=== PATIENT | male | born 1990 | race Two or more races ===

== ENCOUNTER 2022-08-24 14:17 | Emergency (ER) | payer BC, MEDICAID ==
[~2022-08-24] VITALS: Ht 167.6 cm; Wt 57.5 kg
[2022-08-24 14:59] VITALS: BP 123/71
[2022-08-24] MEDS ORDERED: cefTRIAXone SOD 1,000 MG VL IM ONE (15:45)
== END 2022-08-24 16:09 | disposition home or self-care (01) ==
LOC: ER 14:17
DX: Z00.00 Encounter for general adult medical examination without abnormal findings (principal); Z79.2 Long term (current) use of antibiotics
CPT/HCPCS: 96372; 99283; J0696

== ENCOUNTER 2022-12-01 01:10 | Emergency (ER) | payer MEDICAID ==
[~2022-12-01] VITALS: Ht 165.1 cm; Wt 56.8 kg
[2022-12-01 01:30] VITALS: BP 134/72; PULSE 78; RESP 17; O2SAT 94
[2022-12-01 03:37] LABS: Urine Bacteria NONE SEEN /hpf (None Seen); Urine Blood Negative /uL (Negative); Urine Clarity Clear (Clear); Urine Color Colorless (Yellow); Urine Protein, UAD Negative (Negative); Urine Specific Gravity 1.006 (1.001-1.035); Urine Urobilinogen Normal (Negative); Urine WBC 1 /hpf (0 - 3)
== END 2022-12-01 05:30 | disposition left against medical advice (07) ==
LOC: ER 01:13
DX: R30.9 Painful micturition, unspecified (principal); Z53.21 Procedure and treatment not carried out due to patient leaving prior to being seen by health care provider
CPT/HCPCS: 81001

== ENCOUNTER 2023-01-16 11:31 | Emergency (ER) | payer MEDICAID ==
[~2023-01-16] VITALS: Ht 172.7 cm; Wt 68.0 kg
[2023-01-16] MEDS ORDERED: SODIUM CHLORIDE 0.9% 1,000 ML IVB ONE (12:00)
[2023-01-16] MEDS ORDERED: ONDANSETRON HCL 4 MG/2 ML VIAL IV ONE (12:00)
[2023-01-16] MEDS ORDERED: FAMOTIDINE (10MG/ML) 2ML VL IV ONE (12:00)
[2023-01-16] MEDS ORDERED: ACTIVATED CHARCOAL 50 GM/240 ML SOL NG ONE (12:00)
[2023-01-16 13:53] LABS: Basophils # (auto) 0 10 ^3/uL (0-0.2); Eosinophils # (auto) 0 10 ^3/uL (0-0.8); Lymphocytes # (auto) 1.1 10 ^3/uL (0.4-5.4); Monocytes # (auto) 0.5 10 ^3/uL (0-1.3)
[2023-01-16 13:55] LABS: Basophils % (auto) 0.1 % (0.0-2.0); Eosinophils % (auto) 0.1 % (0.0-7.0); Hematocrit 35.8 % (41.0-53.0); Lymphocytes % (auto) 8.5 % (10.0-50.0); Mean Corpuscular Hemoglobin 35.9 pg (28.0-32.0); Mean Corpuscular Hgb Conc. 33.5 g/dL (32.0-36.0); Monocytes % (auto) 3.8 % (0.0-12.0); Neutrophils # (auto) 11.2 10 ^3/uL (1.6-8.6); Neutrophils % (auto) 87.5 % (37.0-80.0); Red Blood Cells 3.35 10^6/uL (4.5-5.90); Red Cell Distribution Width 13.8 % (11.8-14.3); White Blood Cell 12.8 10^3/uL (4.4-10.8)
[2023-01-16 14:14] LABS: Acetaminophen < 2.0 UG/ML (10.0-20.0); Alanine Aminotransferase 20 U/L (7-40); Albumin 4.7 g/dL (3.2-4.8); Alkaline Phosphatase 100 U/L (46-116); Anion Gap 7 (5-15); Aspartate Aminotransferase 21 U/L (13-40); BUN/Creatinine Ratio 18.9 (10.0-20.0); Bilirubin, Total 1.4 mg/dL (0.2-1.0); Blood Alcohol 4.2 mg/dL (<10); Blood Urea Nitrogen 14 mg/dL (9-23); Calcium 9.1 mg/dL (8.7-10.4); Carbon Dioxide 24 mmol/L (20-30); Chloride 108 mmol/L (98-107); Glucose 68 mg/dL (74-106); Magnesium 1.8 mg/dL (1.6-2.6); Potassium 4.1 mmol/L (3.5-5.1); Sodium 139 mmol/L (136-145); Total Protein 6.8 g/dL (5.7-8.2)
[2023-01-16 14:21] LABS: Salicylate < 3.0 mg/dL (2.8-20.0)
[2023-01-16 19:35] VITALS: PULSE 73; RESP 18; O2SAT 94
[2023-01-16 19:38] VITALS: PULSE 80; RESP 20; O2SAT 97
[2023-01-16] MEDS ORDERED: CYCLOBENZAPRINE HCL 10 MG TAB PO ONE (21:15)
[2023-01-16] MEDS ORDERED: guaiFENesin 200 MG/10 ML UD PO ONE (21:15)
[2023-01-16 22:11] LABS: Amphetamine Screen, Urine Neg (NEGATIVE)
[2023-01-16 22:12] LABS: Barbiturate Scree,Urine Neg (NEGATIVE); Benzodiazephine Screen, Urine Neg (NEGATIVE); Cannabinoid Screen, Urine Pos (NEGATIVE); Cocaine Screen, Urine Neg (NEGATIVE); Opiate Scree,Urine Neg (NEGATIVE); Phencyclidine Screen, Urine Neg (NEGATIVE)
[2023-01-16 22:14] LABS: Urine Bacteria NONE SEEN /hpf (None Seen); Urine Blood Negative /uL (Negative); Urine Clarity Clear (Clear); Urine Color Yellow (Yellow); Urine Mucus FEW (None Seen); Urine Protein, UAD Negative (Negative); Urine Specific Gravity 1.024 (1.001-1.035); Urine Urobilinogen Normal (Negative); Urine WBC 1 /hpf (0 - 3)
[2023-01-16] MEDS ORDERED: LORazepam 2MG/ML-1ML VIAL IV ONE (23:00)
[2023-01-17] MEDS ORDERED: LORazepam 2MG/ML-1ML VIAL IV ONE (02:30)
[2023-01-17] MEDS ORDERED: ACETAMINOPHEN 500 MG TAB PO ONE (02:45)
[2023-01-17 10:21] VITALS: PULSE 81; RESP 17; O2SAT 95
[2023-01-17] MEDS ORDERED: diphenhdrAMINE HCL 25 MG CAP PO ONE (13:45)
[2023-01-17] MEDS ORDERED: LORazepam 2MG/ML-1ML VIAL IM ONE (18:00)
[2023-01-17 19:45] VITALS: PULSE 83; RESP 18; O2SAT 96
[2023-01-17 22:07] VITALS: BP 126/83; PULSE 83; RESP 18; TEMP 98; O2SAT 96
== END 2023-01-17 22:38 | disposition short-term general hospital (02) ==
LOC: EDUNIT# 11:31 → ER 11:31 → EDBD 11:31 → ER 01-17 22:38
DX: T43.212A Poisoning by selective serotonin and norepinephrine reuptake inhibitors, intentional self-harm, initial encounter (principal); F31.9 Bipolar disorder, unspecified; R45.851 Suicidal ideations; G47.00 Insomnia, unspecified; Z79.899 Other long term (current) drug therapy; Y92.89 Other specified places as the place of occurrence of the external cause
CPT/HCPCS: 36415; 71045; 80053; 80307; 80320; 80329; 81001; 82962; 83735; 83880; 84443; 84484; 85025; 93005; 96361; 96372; 96374; 96375; 96376; 99285; J2060; J2405; J3490; J7030